=== PATIENT | male | born 1980 | race African-American/Black ===

== ENCOUNTER 2016-07-01 10:44 | Emergency (ER) | payer MEDICARE | END 2016-07-01 12:20 | disposition home or self-care (01) | LOC: D.ER 10:44 | DX: K02.9 Dental caries, unspecified (principal); K08.89 Other specified disorders of teeth and supporting structures ==

== ENCOUNTER 2016-09-11 20:33 | Emergency (ER) | payer MEDICARE | END 2016-09-11 22:45 | disposition home or self-care (01) | LOC: D.ER 20:33 | DX: M10.062 Idiopathic gout, left knee (principal) ==

== ENCOUNTER 2016-10-24 19:37 | Emergency (ER) | payer MEDICARE | END 2016-10-24 21:29 | disposition home or self-care (01) | LOC: D.ER 19:37 | DX: K02.9 Dental caries, unspecified (principal); Z72.0 Tobacco use ==

== ENCOUNTER 2017-03-06 08:56 | Emergency (ER) | payer MEDICARE | END 2017-03-06 11:06 | disposition home or self-care (01) | LOC: D.ER 08:56 | DX: M10.072 Idiopathic gout, left ankle and foot (principal) ==

== ENCOUNTER 2017-07-20 11:32 | Emergency (ER) | payer MEDICARE | END 2017-07-20 12:17 | disposition home or self-care (01) | LOC: D.ER 11:32 | DX: M10.041 Idiopathic gout, right hand (principal); F17.200 Nicotine dependence, unspecified, uncomplicated ==

== ENCOUNTER 2017-10-01 06:27 | Emergency (ER) | payer MEDICARE ==
[~2017-10-01] VITALS: Ht 182.9 cm; Wt 104.5 kg
[2017-10-01 06:30] VITALS: Ht 182.9 cm; Wt 104.5 kg
[2017-10-01 07:13] LABS: BASOPHILS 0.3 % (0-2); EOSINOPHILS 1.5 % (0-7); HEMATOCRIT 42.2 % (42.0-54.0); HEMOGLOBIN 14.4 g/dL (13.5-17.5); IMMATURE GRANULOCYTES 0.1 % (0-5); LYMPHOCYTES 37.3 % (15-50); MCHC 34.1 g/dL (31.0-37.0); MCV 85.1 fL (80.0-100.0); MEAN PLATELET VOLUME 10.1 fL (7.4-10.4); MONOCYTES 11.2 % (2-11); NEUTROPHILS 49.6 % (40-80); PLATELET COUNT 195 10x3/uL (130-400); RBC 4.96 10x6/uL (4.20-6.10); RDW 15.3 % (11.5-14.5); WBC 7.5 10x3/uL (4.8-10.8)
[2017-10-01 07:40] LABS: ALBUMIN 4.1 g/dL (3.4-5.0); ANION GAP 12.2 mmol/L (8-16); BILIRUBIN - TOTAL 0.58 mg/dL (0.2-1.3); C-REACTIVE PROTEIN 1.4 mg/dL (0.0-0.9); CALCIUM 9.7 mg/dL (8.5-10.1); CARBON DIOXIDE 28.8 mmol/L (21.0-32.0); CREATININE - SERUM 1.4 mg/dL (0.6-1.3); PROTEIN - SERUM 7.9 g/dL (6.4-8.2)
[2017-10-01] MEDS ORDERED: COLCRYS0.6 MG PO (07:57)
[2017-10-01 08:12] VITALS: BP 138/91
== END 2017-10-01 08:12 | disposition home or self-care (01) ==
LOC: D.ER 06:27
PROVIDERS: Family Medicine
DX: M10.022 Idiopathic gout, left elbow (principal); F17.200 Nicotine dependence, unspecified, uncomplicated

== ENCOUNTER 2017-10-19 22:56 | Emergency (ER) | payer MEDICARE ==
[~2017-10-19] VITALS: Ht 182.9 cm; Wt 100.0 kg
[~2017-10-19 22:56] MED LIST: COLCRYS0.6 MG PO
[2017-10-19 23:00] VITALS: Ht 182.9 cm; Wt 100.0 kg
[2017-10-20 00:55] LABS: BASOPHILS 0.6 % (0-2); EOSINOPHILS 1.6 % (0-7); HEMATOCRIT 38.8 % (42.0-54.0); HEMOGLOBIN 13.1 g/dL (13.5-17.5); LYMPHOCYTES 47.4 % (15-50); MCH 28.5 pg (26.0-34.0); MCHC 33.8 g/dL (31.0-37.0); MCV 84.5 fL (80.0-100.0); MONOCYTES 9.9 % (2-11); NEUTROPHILS 40.5 % (40-80); PLATELET COUNT 206 10x3/uL (130-400); RBC 4.59 10x6/uL (4.20-6.10); WBC 6.4 10x3/uL (4.8-10.8)
[2017-10-20 01:22] LABS: ACETAMINOPHEN 2.4 ug/mL (10.0-30.0); ALBUMIN 3.6 g/dL (3.4-5.0); ANION GAP 11.4 mmol/L (8-16); BILIRUBIN - TOTAL 0.43 mg/dL (0.2-1.3); CALCIUM 8.7 mg/dL (8.5-10.1); CARBON DIOXIDE 29.8 mmol/L (21.0-32.0); CREATININE - SERUM 1.4 mg/dL (0.6-1.3); POTASSIUM - SERUM 3.2 mmol/L (3.5-5.1); PROTEIN - SERUM 7.4 g/dL (6.4-8.2)
[2017-10-20] MEDS ORDERED: IBUPROFEN800 MG PO (02:52)
[2017-10-20] MEDS ORDERED: CYCLOBENZAPRINE10 MG PO (02:52)
[2017-10-20] MEDS ORDERED: PENICILLIN V P500 MG PO (02:52)
[2017-10-20] MEDS ORDERED: ACETAMINOPHEN500 M1 PO (02:52)
[2017-10-20 04:19] VITALS: BP 127/89
== END 2017-10-20 04:14 | disposition home or self-care (01) ==
LOC: D.ER 22:56
PROVIDERS: Family Medicine
DX: K02.9 Dental caries, unspecified (principal); F11.129 Opioid abuse with intoxication, unspecified; F17.200 Nicotine dependence, unspecified, uncomplicated

== ENCOUNTER 2017-11-17 20:39 | Emergency (ER) | payer MEDICARE ==
[~2017-11-17] VITALS: Ht 182.9 cm; Wt 100.0 kg
[~2017-11-17 20:39] MED LIST changes: +ACETAMINOPHEN500 M1 PO; +CYCLOBENZAPRINE10 MG PO; +IBUPROFEN800 MG PO; +PENICILLIN V P500 MG PO
[2017-11-17 20:44] VITALS: Ht 182.9 cm; Wt 100.0 kg
[2017-11-17] MEDS ORDERED: VOLTAREN75 MG PO (21:50)
[2017-11-17] MEDS ORDERED: CYCLOBENZAPRINE10 MG PO (21:50)
[2017-11-17 22:20] VITALS: BP 140/98
== END 2017-11-17 22:20 | disposition home or self-care (01) ==
LOC: D.ER 20:39
DX: M25.562 Pain in left knee (principal); F17.200 Nicotine dependence, unspecified, uncomplicated

== ENCOUNTER 2018-03-26 20:36 | Emergency (ER) | payer MEDICARE | END 2018-03-26 21:16 | disposition home or self-care (01) | LOC: D.ER 20:36 | DX: L30.8 Other specified dermatitis (principal); F17.200 Nicotine dependence, unspecified, uncomplicated ==

== ENCOUNTER 2018-03-31 17:28 | Emergency (ER) | payer MEDICARE ==
[~2018-03-31] VITALS: Ht 182.9 cm; Wt 100.0 kg
[~2018-03-31 17:28] MED LIST changes: +ATARAX 25 MG TA25 MG PO; +KENALOG 0.1 % O15 GM TOPICAL; +NORVASC5 MG PO; +VOLTAREN75 MG PO
[2018-03-31 17:36] VITALS: Ht 182.9 cm; Wt 100.0 kg
[2018-03-31 18:34] LABS: BASOPHILS 0.3 % (0-2); EOSINOPHILS 0.6 % (0-7); HEMATOCRIT 43.1 % (42.0-54.0); HEMOGLOBIN 14.5 g/dL (13.5-17.5); IMMATURE GRANULOCYTES 0.1 % (0-5); LYMPHOCYTES 25.6 % (15-50); MCH 28.1 pg (26.0-34.0); MCHC 33.6 g/dL (31.0-37.0); MCV 83.5 fL (80.0-100.0); MEAN PLATELET VOLUME 10.6 fL (7.4-10.4); MONOCYTES 6.9 % (2-11); NEUTROPHILS 66.5 % (40-80); RBC 5.16 10x6/uL (4.20-6.10); RDW 15.2 % (11.5-14.5); WBC 7.8 10x3/uL (4.8-10.8)
[2018-03-31 18:41] LABS: PLATELET COUNT 254 10x3/uL (130-400)
[2018-03-31 18:51] LABS: ALBUMIN 4.2 g/dL (3.4-5.0); ANION GAP 16.7 mmol/L (8-16); BILIRUBIN - TOTAL 0.39 mg/dL (0.2-1.3); CALCIUM 9.4 mg/dL (8.5-10.1); CARBON DIOXIDE 26.9 mmol/L (21.0-32.0); CREATININE - SERUM 1.2 mg/dL (0.6-1.3); MAGNESIUM - SERUM 1.4 mg/dL (1.8-2.4); POTASSIUM - SERUM 3.6 mmol/L (3.5-5.1); PROTEIN - SERUM 8.4 g/dL (6.4-8.2)
[2018-03-31 20:03] LABS: CKMB 1.3 U/L (0.0-3.6); CREATINE KINASE 232 UL (21-232)
[2018-03-31 20:17] LABS: TROPONIN-I < 0.017 ng/mL (0.000-0.060)
[2018-04-01 02:16] VITALS: BP 142/100
== END 2018-04-01 02:18 | disposition home or self-care (01) ==
LOC: D.ER 17:28
PROVIDERS: Family Medicine
DX: I10 Essential (primary) hypertension (principal); E83.42 Hypomagnesemia; R42 Dizziness and giddiness; F17.200 Nicotine dependence, unspecified, uncomplicated

== ENCOUNTER 2018-11-07 20:27 | Emergency (ER) | payer MEDICARE ==
[~2018-11-07] VITALS: Ht 182.9 cm; Wt 95.5 kg
[2018-11-07 20:31] VITALS: Ht 182.9 cm; Wt 95.5 kg
[2018-11-07] MEDS ORDERED: COLCRYS0.6 MG PO (23:12)
[2018-11-07] MEDS ORDERED: PREDNISONE20 MG PO (23:12)
[2018-11-07 23:45] VITALS: BP 132/94
== END 2018-11-07 23:45 | disposition home or self-care (01) ==
LOC: D.ER 20:27
DX: M10.041 Idiopathic gout, right hand (principal)

== ENCOUNTER 2018-12-16 18:35 | Emergency (ER) | payer MEDICARE ==
[~2018-12-16] VITALS: Ht 182.9 cm; Wt 95.5 kg
[~2018-12-16 18:35] MED LIST changes: +PREDNISONE20 MG PO
[2018-12-16 18:59] VITALS: Ht 182.9 cm; Wt 95.5 kg
[2018-12-16] MEDS ORDERED: AMOXICILLIN500 M1 PO (20:43)
[2018-12-16] MEDS ORDERED: VOLTAREN75 MG PO (20:43)
[2018-12-16 21:30] VITALS: BP 165/119
== END 2018-12-16 21:30 | disposition home or self-care (01) ==
LOC: D.ER 18:35
DX: K04.7 Periapical abscess without sinus (principal)

== ENCOUNTER 2019-02-12 07:42 | Emergency (ER) | payer MEDICARE ==
[~2019-02-12] VITALS: Ht 182.9 cm; Wt 95.5 kg
[~2019-02-12 07:42] MED LIST changes: +AMOXICILLIN500 M1 PO
[2019-02-12 07:46] VITALS: Ht 182.9 cm; Wt 95.5 kg
[2019-02-12 08:14] LABS: BASOPHILS 0.2 % (0-2); EOSINOPHILS 1.1 % (0-7); HEMATOCRIT 42.8 % (42.0-54.0); HEMOGLOBIN 14.1 g/dL (13.5-17.5); IMMATURE GRANULOCYTES 0.2 % (0-5); LYMPHOCYTES 42.5 % (15-50); MCH 28.4 pg (26.0-34.0); MCHC 32.9 g/dL (31.0-37.0); MCV 86.3 fL (80.0-100.0); MEAN PLATELET VOLUME 10.3 fL (7.4-10.4); MONOCYTES 14.9 % (2-11); NEUTROPHILS 41.1 % (40-80); PLATELET COUNT 259 10x3/uL (130-400); RBC 4.96 10x6/uL (4.20-6.10); RDW 15.4 % (11.5-14.5); WBC 5.4 10x3/uL (4.8-10.8)
[2019-02-12 08:16] LABS: ANION GAP 12.8 mmol/L (8-16); CALCIUM 9.3 mg/dL (8.5-10.1); CARBON DIOXIDE 29.3 mmol/L (21.0-32.0); CREATININE - SERUM 1.3 mg/dL (0.6-1.3); POTASSIUM - SERUM 4.1 mmol/L (3.5-5.1)
[2019-02-12 08:18] LABS: APPEARANCE CLEAR (CLEAR); BACTERIA MODERATE /hpf (NEGATIVE); BILIRUBIN NEGATIVE (NEGATIVE); COLOR YELLOW (YELLOW); EPITHELIAL CELLS 0-5 /hpf (0-5); GLUCOSE NEGATIVE (NEGATIVE); KETONE NEGATIVE (NEGATIVE); MUCUS >1+ /lpf (NONE SEEN); NITRITE NEGATIVE (NEGATIVE); PROTEIN 1+ mg/dL (NEGATIVE); UROBILINOGEN NORMAL (NORMAL)
[2019-02-12 08:22] LABS: ALBUMIN 4.3 g/dL (3.4-5.0); BILIRUBIN - TOTAL 0.32 mg/dL (0.2-1.3); PROTEIN - SERUM 8.1 g/dL (6.4-8.2)
[2019-02-12] MEDS ORDERED: VIBRAMYCIN 100100 MG PO (09:41)
[2019-02-12 09:49] VITALS: BP 127/83
== END 2019-02-12 09:49 | disposition home or self-care (01) ==
LOC: D.ER 07:42
PROVIDERS: Family Medicine
DX: N39.0 Urinary tract infection, site not specified (principal); N20.0 Calculus of kidney; F17.210 Nicotine dependence, cigarettes, uncomplicated

== ENCOUNTER 2019-10-23 08:36 | Emergency (ER) | payer MEDICARE ==
[~2019-10-23] VITALS: Ht 182.9 cm; Wt 100.0 kg
[~2019-10-23 08:36] MED LIST changes: +VIBRAMYCIN 100100 MG PO
[2019-10-23 08:51] VITALS: BP 150/105; Ht 182.9 cm; Wt 100.0 kg
[2019-10-23] MEDS ORDERED: HYDROCODON-ACE1 EAC2 PO (09:05)
[2019-10-23] MEDS ORDERED: AMOXICILLIN875 MG PO (09:05)
== END 2019-10-23 09:16 | disposition home or self-care (01) ==
LOC: D.ER 08:36
DX: K02.9 Dental caries, unspecified (principal); K04.7 Periapical abscess without sinus; K08.89 Other specified disorders of teeth and supporting structures; I10 Essential (primary) hypertension; Z72.0 Tobacco use